=== PATIENT | male | born 1975 | race Caucasian/White ===

== ENCOUNTER 2022-05-27 17:41 | Outpatient (CLI) | payer OTHER, SELFPAY ==
[2022-05-27 18:16] LABS: Basophils # 0.1 10^3/uL (0.0-0.1); Basophils % 1.1 %; Eosinophils # 0.3 10^3/uL (0.0-0.8); Eosinophils % 2.8 %; Hematocrit 43.3 % (42.0-52.0); Hemoglobin 14.1 g/dL (11.7-16.6); Lymphocytes # 1.8 10^3/uL (0.8-4.8); Mean Corpuscular HGB Conc 32.6 g/dL (30.0-36.0); Mean Corpuscular Hemoglobin 27.9 pg (28.0-34.0); Mean Corpuscular Volume 85.6 fl (80-94); Mean Platelet Volume 9.8 fL (7.4-10.4); Monocytes # 0.7 10^3/uL (0.2-0.9); Monocytes % 7.9 %; Neutrophils # 6.24 10^3/uL (1.8-7.7); Neutrophils % 67.8 %; Nucleated Red Blood Cells % 0 %; Platelet Count 303 10^3/cmm (130-400); Red Blood Count 5.06 10^6/uL (4.1-5.3); Red Cell Distribution Width 12.8 % (12.1-15.1); White Blood Count 9.2 10^3/uL (4.0-10.0)
[2022-05-27 18:24] LABS: Erythrocyte Sedimentation Rate 9 mm/hr (0-10)
[2022-05-27 18:35] LABS: Alanine Aminotransferase 28 U/L (0-41); Albumin Level 4.3 g/dL (3.5-5.2); Alkaline Phosphatase 148 U/L (40-130); Aspartate Amino Transferase 19 U/L (0-40); C Reactive Protein 12.7 mg/L (0.0-4.9); Globulin 2.4 g/dL (1.3-4.6); Glomerular Filtration Rate 80.1 mL/min (90-130); Total Bilirubin 0.5 mg/dL (0.15-1.2); Total Protein 6.7 g/dL (6.6-8.7)
[2022-05-27 20:50] LABS: Hepatitis B Core AB, Total Non-Reactive (Nonreactive); Hepatitis B Surface Antigen Non-Reactive (Nonreactive); Hepatitis C Virus Antibody Non-Reactive (Nonreactive)
[2022-05-29 11:08] LABS: CENTROMERE B ANTIBODY <1.0 NEG AI (<1.0 NEG); JO-1 ANTIBODY <1.0 NEG AI (<1.0 NEG); RNP ANTIBODY <1.0 NEG AI (<1.0 NEG); SCL-70 ANTIBODY <1.0 NEG AI (<1.0 NEG); SJOGREN'S ANTIBODY (SS-A) <1.0 NEG AI (<1.0 NEG); SM ANTIBODY <1.0 NEG AI (<1.0 NEG); SS-B <1.0 NEG AI (<1.0 NEG)
[2022-05-29 12:34] LABS: COMPLEMENT COMPONENT C3C 170 mg/dL (82-185); COMPLEMENT COMPONENT C4C 32 mg/dL (15-53)
[2022-05-29 12:57] LABS: COMPLEMENT, TOTAL (CH50) 56 U/mL (31-60)
[2022-05-29 14:08] LABS: THYROID PEROXIDASE ANTIBODIES 2 IU/mL (<9)
[2022-05-29 17:04] LABS: ANA SCREEN, IFA NEGATIVE (NEGATIVE)
[2022-05-30 13:57] LABS: HLA-B27 POSITIVE (NEGATIVE)
[2022-05-30 14:37] LABS: Quantiferon Mitogen 9.27 IU/mL; Quantiferon Nil 0.02 IU/mL; Quantiferon Plus TB2 0.01 IU/mL; Quantiferon TB Gold NEGATIVE (NEGATIVE)
[2022-05-30 15:49] LABS: Cyclic Citrullinated Peptide <16 UNITS
[2022-05-31 15:18] LABS: DNA AB (DS) CRITHIDIA,IFA NEGATIVE (NEGATIVE)
== END 2022-05-27 17:42 | disposition home or self-care (01) ==
PROVIDERS: Visit Provider Internal Medicine Rheumatology
DX: M45.6 Ankylosing spondylitis lumbar region (principal); Z15.89 Genetic susceptibility to other disease; Z79.899 Other long term (current) drug therapy; R76.8 Other specified abnormal immunological findings in serum; Z11.59 Encounter for screening for other viral diseases
CPT/HCPCS: 80076; 82565; 85025; 85651; 86140; 86160; 86162; 86200; 86235; 86255; 86376; 86431; 86480; 86704; 86803; 86812; 87340

== ENCOUNTER 2022-05-30 11:55 | Outpatient (CLI) | payer OTHER, SELFPAY ==
--- NOTE | 2022-05-30 12:19 | XR_ITS ---
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 Findings: There are osteoarthritic spurs of all the thoracic vertebral bodies. There is disc space narrowing of all the thoracic disc interspaces. The paraspinal regions are normal. No compression fractures are seen. XR/XR thoracic spine 3V* [id number] Impression: Osteoarthritis and degenerative disc narrowing at all thoracic levels.
--- NOTE | 2022-05-30 12:19 | XR_ITS ---
WS: [id number] Lumbar spine, 3 views, 05/30/2022 Clinical Data: Z79.899 - Other half-way (current) drug therapy Comparison: None. Findings: No compression fractures or subluxation is seen. There is degenerative disc narrowing at the lower th oracic levels and L1-L2. There is narrowing of L5-S1. There are syndesmophytes of the lumbar spine c onsistent with ankylosing spondylitis.. The transverse processes are normal. The SI joints show sclerosis and narrowing. XR/XR lumbar spine 2-3V* [id number] Impression: 1. Probable ankylosing spondylitis. 2. Degenerative disc narrowing at L1-L2 and L5-S1.
--- NOTE | 2022-05-30 12:19 | XR_ITS ---
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 Findings: The SI joints show sclerosis and narrowing. This may indicate ankylosing spondylitis. The adjacent visualized pelvis and hips are unremarkable. XR/XR sacroiliac jts m 3V [id number] Impression: Sclerosis and narrowing of the SI joints which can indicate ankylosing spondyli tis.
--- NOTE | 2022-05-30 12:19 | XR_ITS ---
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 Findings: No compression fractures are seen. The disc heights are normal. There is anterior osteoarth ritic spurring from C2 through C7. There is no prevertebral soft tissue swelling. The odontoid is unr emarkable. The soft tissues of the neck and the lung apices are normal. 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
== END 2022-05-30 11:56 | disposition home or self-care (01) ==
PROVIDERS: Visit Provider Internal Medicine Rheumatology
DX: Z79.899 Other long term (current) drug therapy (principal); M45.6 Ankylosing spondylitis lumbar region; Z15.89 Genetic susceptibility to other disease; M47.814 Spondylosis without myelopathy or radiculopathy, thoracic region
CPT/HCPCS: 72040; 72072; 72100; 72202

== ENCOUNTER 2023-02-06 15:12 | Outpatient (CLI) | payer OTHER, SELFPAY ==
[2023-02-06 16:01] LABS: Lipase 47 U/L (13-60)
== END 2023-02-06 15:13 | disposition home or self-care (01) ==
PROVIDERS: PCP Family Medicine; Visit Provider Family Medicine
DX: R10.9 Unspecified abdominal pain (principal)
CPT/HCPCS: 83690

== ENCOUNTER 2023-02-06 15:38 | Emergency (ER) | payer OTHER, SELFPAY ==
[2023-02-06 15:40] VITALS: BP 133/88; PULSE 96; RESP 16; TEMP 36.4; O2SAT 97
--- NOTE | 2023-02-06 15:50 | ED_ITS ---
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 He notes some diarrhea 3 days ago however this had resolved and he had normal bowel movements. Today he had onset of symptoms approximately 2 PM with subacute onset of pain in the epigastric region. He notes nausea but no vomiting. He denies fevers. There is no significant radiation of the symptoms. Moderate to severe in intensity. He tried a GI cocktail with only mild improvement. No other specific changes in health, exacerbating, or alleviating factors identified. Onset (ago): hour(s) Location: Epigastric and Periumbilical Severity: severe Quality: stabbing and sharp Radiation: none Migration to: no migration Exacerbating factors: other (Palpation) Relieving factors: nothing Associated Symptoms: Reports diarrhea and nausea; Denies fever(s) and vomiting Review of Systems General: Reports: 10 or more systems reviewed and unremarkable except in HPI and below Const: Denies: fever(s) GI: Reports: nausea and diarrhea; Denies: vomiting PFSH ED PFSH: Medical History Axial spondyloarthritis Chronic back pain greater than 3 months duration High risk medication use HLA B27 (HLA B27 positive) Hyperlipidemia Hypertension Joint pain Obstructive sleep apnea Uveitis prior hx Surgical History History of sinus surgery History of tonsillectomy Social History Smoking and tobacco status: never smoked Physical Exam Const: COMMON NORMALS: alert GENERAL APPEARANCE: cooperative and well de veloped HENMT: COMMON NORMALS: normocephalic and atraumatic HEAD & SCALP: normocephalic and atraumatic Eye: COMMON NORMALS: conjunctivae normal CONJUNCTIVA: Yes conjunctivae normal SCLERA: sclerae normal Neck/C-Spine: COMMON NORMALS: supple GENERAL: Yes trachea midline Resp: COMMON NORMALS: clear to auscultation bilaterally EFFORT & INSPECTION: Yes able to speak in complete sentences AUSCULTATION: clear to auscultation bilaterally Cardio: COMMON NORMALS: regular rate and regular rhythm RATE: regular rate RHYTHM: regular rhythm GI: COMMON NORMALS: Soft to palpation PALPATION: Yes Soft to palpation, Yes Tenderness to palpation present (GI), Yes Guarding due to palpation present (GI) and No Rigid due to palpation Extremity: GENERAL: Yes normal exam except as noted and No edema Neuro: COMMON NORMALS: moves all extremities SENSORIUM/ORIENTATION: Yes alert and No Orientation impaired Psych: COMMON NORMALS: mental status grossly normal and Normal thought process present THOUGHT PROCESS: Normal thought process present Course Vital Signs: Vital signs: Vital Signs Temperature 97.6 F 02/06/23 15:40 Pulse Rate 106 H 02/06/23 18:21 Respiratory Rate 18 02/06/23 16:30 Blood Pressure 141/102 02/06/23 18:21 Pulse Oximetry 96 02/06/23 18:21 Oxygen Delivery Me thod Room Air 02/06/23 16:30 MDM - Abdominal Pain Medical Decision Making 47-year-old gentleman presenting with abdominal symptoms. Patient is uncomfortable appearing however nontoxic. There is evidence of abdominal tenderness and guarding with no evidence of acute surgical abdomen. Labs with mild hemoconcentration and leukocytosis. Metabolic panel unremarkable. Minimal elevation in ALT but no UTI. CT abdomen pelvis demonstrates likely ileus or enteritis. Incidental findings d iscussed with patient. Patient is significantly improved with treatment. He is comfortable with ou tpatient management. The results of ED evaluation were discussed with the patient including prescri ptions and/or symptomatic cares (if applicable) including appropriate and responsible use, followup plan, and return precautions. The patient verbalized understanding and felt safe for discharge. Medical Records I reviewed the patient's medical records. Lab Data I reviewed the patient's lab results. 02/06/23 15:59 02/06/23 15:59 Labs/Radiology: Radiology Impressions Abdomen/Pelvis CT 02/06/23 16:23 IMPRESSION: 1. Mildly dilated loops of proximal to mid small bowel with fecalization. This is consistent with decreased peristalsis and could represent ileus or enteritis. 2. Mild diverticulosis of the colon. 3. Nonobstructing renal calculi. COMMENTS: Consistent with the [employer]'s Incidental Findings Committee white paper (J Am Avery Radiol 2018): Any incidental renal lesion less than 1 cm or classified as too small to characterize, or any incidental cystic renal lesion characterized as simple-appearing, is likely benign. No follow-up imaging is recommended for these lesions per consensus recommendations based on imaging criteria. Laboratory Results WBC 11.4 10^3/uL (4.0-10.0) H 02/06/23 15:59 RBC 5.62 10^6/uL (4.1-5.3) H 02/06/23 15:59 Hgb 15.9 g/dL (11.7-16.6) 02/06/23 15:59 Hct 48.1 % (42.0-52.0) 02/06/23 15:59 MCV 85.6 fl (80-94) 02/06/23 15:59 MCH 28.3 pg (28.0-34.0) 02/06/23 15:59 MCHC 33.1 g/dL (30.0-36.0) 02/06/23 15:59 RDW 12.8 % (12.1-15.1) 02/06/23 15:59 Plt Count 294 10^3/cmm (130-400) 02/06/23 15:59 MPV 9.9 fL (7.4-10.4) 02/06/23 15:59 Neut % (Auto) 69.1 % 02/06/23 15:59 Lymph % (Auto) 19.5 % 02/06/23 15:59 [place] % (Auto) 9.3 % 02/06/23 15:59 Eos % (Auto) 0.7 % 02/06/23 15:59 Baso % (Auto) 1.0 % 02/06/23 15:59 Neut # (Auto) 7.86 10^3/uL (1.8-7.7) H 02/06/23 15:59 Lymph # (Auto) 2.2 10^3/uL (0.8-4.8) 02/06/23 15:59 [place] # (Auto) 1.1 10^3/uL (0.2-0.9) H 02/06/23 15:59 Eos # (Auto) 0.1 10^3/uL (0.0-0.8) 02/06/23 15:59 Baso # (Auto) 0.1 10^3/uL (0.0-0.1) 02/06/23 15:59 Nucleated RBC % (auto) 0 % 02/06/23 15:59 Nucleated RBCs # 0.0 /100WBC 02/06/23 15:59 Sodium 137 mmol/L (136-145) 02/06/23 15:59 Potassium 4.0 mmol/L (3.5-5.1) 02/06/23 15:59 Chloride 99 mmol/L (98-107) 02/06/23 15:59 Carbon Dioxide 28 mmol/L (22-29) 02/06/23 15:59 Anion Gap 14.0 (5-19) 02/06/23 15:59 BUN 17 mg/dL (6-20) 02/06/23 15:59 Creatinine 1.0 mg/dL (0.7-1.2) 02/06/23 15:59 GFR Calculation 79.8 mL/min (90-130) L 02/06/23 15:59 Glucose 114 mg/dL (65-115) 02/06/23 15:59 Calculated Osmolality 286 mOsm/kg (285-295) 02/06/23 15:59 Calcium 9.5 mg/dL (8.5-10.5) 02/06/23 15:59 Total Bilirubin 0.7 mg/dL (0.15-1.2) 02/06/23 15:59 AST 33 U/L (0-40) 02/06/23 15:59 ALT 55 U/L (0-41) H 02/06/23 15:59 Alkaline Phosphatase 84 U/L (40-130) 02/06/23 15:59 Total Protein 7.3 g/dL (6.6-8.7) 02/06/23 15:59 Albumin 4.5 g/dL (3.5-5.2) 02/06/23 15:59 Globulin 2.8 g/dL (1.3-4.6) 02/06/23 15:59 Lipase 42 U/L (13-60) 02/06/23 15:59 Urine Color Yellow (Yellow) 02/06/23 16:55 Urine Appearance Clear (CLEAR) 02/06/23 16:55 Urine pH 7 (5-7) 02/06/23 16:55 Ur Specific [place] 1.005 (1.005-1.030) 02/06/23 16:55 Urine Protein Neg (Negative) 02/06/23 16:55 Urine Glucose (UA) Norm (Normal) 02/06/23 16:55 Urine Ketones Negative (Negative) 02/06/23 16:55 Urine Blood Neg (Negative) 02/06/23 16:55 Urine Nitrate Negative (Negative) 02/06/23 16:55 Urine Bilirubin Neg (Negative) 02/06/23 16:55 Urine Urobilinogen Norm mg/dL (Negative) 02/06/23 16:55 Ur Leukocyte Esterase Negative (Negative) 02/06/23 16:55 Discharge Plan Discharge Patient Disposition: Home Clinical Impression: Abdominal pain, Enteritis, Nausea Condition: Stable Prescriptions: New Reglan 10 mg tablet 10 mg PO Q6H PRN (Reason: nausea and vomiting) Qty: 20 0RF No Action omeprazole 20 mg capsule,delayed release(DR/EC) 20 mg PO DAILY tadalafil 10 mg tablet 10 mg PO DAILY Rx Instructions: administer approximately 30min before sexual activity; do not use more than 1 dose per 24hrs lisinopril 20 mg tablet 40 mg PO DAILY Humira 40 mg/0.8 mL syringe kit See Rx Instructions .ROUTE .COMPLEX Qty: 2 3RF Dose Instruction: INJECT 40MG (0.8ML) SUBCUTANEOUSLY EVERY 14 DAYS Rx Instructions: INJECT 40MG (0.8ML) SUBCUTANEOUSLY EVERY 14 DAYS chlorthalidone 25 mg tablet 12.5 mg PO DAILY prednisone 20 mg tablet See Rx Instructions PO .COMPLEX PRN (Reason: joint pain flare) Qty: 30 1RF Rx Instructions: take 1 tab daily for 5-7 days as needed for arthritis flare PO PRN; Discharge Orders: Discharge ED (Routine); Ordered 02/06/23 Ordered By: Glenn Nugent Referrals: Ralf Skelton MD [Primary Care Provider] - Discharge Diet: Advance as tolerated and Clear Liquid Discharge Activity: Increase activity as tolerated Patient Instructions: Abdominal Pain (ED), Ileus (ED), Enteritis (ED), Opioid Safety Activity Restrictions/Additional Instructions: Thank you for visiting the emergency department. You were seen and evaluated for abdominal pain with nausea. The most likely cause of your symptoms is related to enteritis/ileus. As discussed the treatment for this is typically supportive though there is a risk of progression to a bowel obstruction. I will prescribe antinausea medication. Please start with clear liquid diet and advance slowly as tolerated. Return to the emergency department for worsening symptoms, inability tolerate medication or oral intake, inability to have bowel movements or pass flatus, or anything else that you are concerned about and feel needs emergency room evaluation. Coding Level of Care Code ED [place] for Maritza Cook
[2023-02-06 15:56] VITALS: PULSE 87; RESP 18; O2SAT 99
[2023-02-06] MEDS: lactated ringers 1,000 ML 999 ML IV (16:08)
[2023-02-06] MEDS: morphine 4 mg/mL SDV 1 mL IVP (16:10)
[2023-02-06] MEDS: ondansetron 2 mg/ML SDV 2 mL 4 MG IVP (16:10)
--- NOTE | 2023-02-06 16:23 | CTR_ITS ---
PROCEDURE INFORMATION: Exam: CT Abdomen And Pelvis With Contrast Exam date and time: 02/06/2023 4:44 PM Age: 47 years old Clinical indication: Abdominal pain; Additional info: Epigastric pain TECHNIQUE: Imaging protocol: Computed tomography of the abdomen and pelvis with contrast. Radiation optimization: All CT scans at this facility use at least one of these dose optimization techniques: automated exposure control; mA and/or kV adjustment per patient size (includes targeted exams where dose is matched to clinical indication); or iterative reconstruction. Contrast material: OMNI 350; Contrast volume: 100 ml; Contrast route: INTRAVENOUS (IV); REPORTING DATA: Count of CT and Cardiac NM exams in prior 12 months: This patient has received 0 known CTs and 0 known cardiac nuclear medicine studies in the 12 months prior to the current study. COMPARISON: CR XR hip RT 2-3V wo/w pel* [id number] 01/15/2023 7:44 AM RADIATION DOSE METRICS: Total DLP (mGy-cm): 1160.63 FINDINGS: Liver: Mild diffuse fatty infiltration. No mass. Gallbladder and bile ducts: Normal. No calcified stones. No ductal dilation. Pancreas: Normal. No ductal dilation. Spleen: Normal. No splenomegaly. Adrenal glands: Normal. No mass. Kidneys and ureters: 6 mm right and 3 mm left nonobstructing renal calculi. No ureteral calculus or hydronephrosis. Left renal cyst, Hounsfield units less than 20. Additional hypodense lesions in both kidneys are too small to characterize but most likely represent cysts. No follow-up imaging is recommended. Stomach and bowel: Mild diverticulosis of the distal colon. No diverticulitis. Food distended stomach. No wall thickening. Multiple loops of fluid filled proximal to mid small bowel with some fecalization, measuring up to 3.5 cm diameter. No focal transition point or obstruction. Appendix: The appendix is visualized and is normal. Intraperitoneal space: Unremarkable. No free air. No significant fluid collection. Vasculature: Unremarkable. No abdominal aortic aneurysm. Lymph nodes: Unremarkable. No enlarged lymph nodes. Urinary bladder: Unremarkable as visualized. Reproductive: Unremarkable as visualized. Bones/joints: Unremarkable. No acute fracture. Soft tissues: Small fat containing umbilical hernia. CT/CT abdomen pelvis w con* [id number] IMPRESSION: 1. Mildly dilated loops of proximal to mid small bowel with fecalization. This is consistent with decreased peristalsis and could represent ileus or enteritis. 2. Mild diverticulosis of the colon. 3. Nonobstructing renal calculi. COMMENTS: Consistent with the [employer]'s Incidental Findings Committee white paper (J Am Avery Radiol 2018): Any incidental renal lesion less than 1 cm or classified as too small to characterize, or any incidental cystic renal lesion characterized as simple-appearing, is likely benign. No follow-up imaging is recommended for these lesions per consensus recommendations based on imaging criteria.
[2023-02-06 16:30] VITALS: PULSE 86; RESP 18; O2SAT 95
[2023-02-06 16:34] LABS: Basophils # 0.1 10^3/uL (0.0-0.1); Eosinophils # 0.1 10^3/uL (0.0-0.8); Eosinophils % 0.7 %; Hematocrit 48.1 % (42.0-52.0); Hemoglobin 15.9 g/dL (11.7-16.6); Lymphocytes # 2.2 10^3/uL (0.8-4.8); Lymphocytes % 19.5 %; Mean Corpuscular HGB Conc 33.1 g/dL (30.0-36.0); Mean Corpuscular Hemoglobin 28.3 pg (28.0-34.0); Mean Corpuscular Volume 85.6 fl (80-94); Mean Platelet Volume 9.9 fL (7.4-10.4); Monocytes # 1.1 10^3/uL (0.2-0.9); Monocytes % 9.3 %; Neutrophils # 7.86 10^3/uL (1.8-7.7); Neutrophils % 69.1 %; Nucleated Red Blood Cells % 0 %; Platelet Count 294 10^3/cmm (130-400); Red Blood Count 5.62 10^6/uL (4.1-5.3); Red Cell Distribution Width 12.8 % (12.1-15.1); White Blood Count 11.4 10^3/uL (4.0-10.0)
[2023-02-06 16:44] LABS: Alanine Aminotransferase 55 U/L (0-41); Albumin Level 4.5 g/dL (3.5-5.2); Alkaline Phosphatase 84 U/L (40-130); Aspartate Amino Transferase 33 U/L (0-40); Blood Urea Nitrogen 17 mg/dL (6-20); Calcium 9.5 mg/dL (8.5-10.5); Carbon Dioxide 28 mmol/L (22-29); Chloride 99 mmol/L (98-107); Globulin 2.8 g/dL (1.3-4.6); Glomerular Filtration Rate 79.8 mL/min (90-130); Glucose 114 mg/dL (65-115); Lipase 42 U/L (13-60); Osmolality Calculated 286 mOsm/kg (285-295); Sodium 137 mmol/L (136-145); Total Bilirubin 0.7 mg/dL (0.15-1.2); Total Protein 7.3 g/dL (6.6-8.7)
[2023-02-06 16:58] VITALS: BP 132/87; PULSE 104; O2SAT 97
[2023-02-06 17:24] LABS: Add Urine Microscopic? NO; Charge for UA Resulting for Rev
[2023-02-06 17:32] LABS: Bilirubin Urine Neg (Negative); Blood Urine Neg (Negative); Glucose Urine UA Norm (Normal); Ketones Urine Negative (Negative); Leukocyte Esterase Urine Negative (Negative); Nitrate Urine Negative (Negative); Protein Urine Neg (Negative); Specific Gravity, Urine 1.005 (1.005-1.030); Urine Appearance Clear (CLEAR); Urine Color Yellow (Yellow); Urobilinogen Urine Norm (Negative); pH Urine 7 (5-7)
[2023-02-06] MEDS: metoclopramide 5 mg/mL SDV 2 mL 10 MG IVP (18:02)
[2023-02-06 18:07] VITALS: BP 141/102; PULSE 101; O2SAT 99
[2023-02-06 18:21] VITALS: BP 141/102; PULSE 106; O2SAT 96
== END 2023-02-06 18:22 | disposition home or self-care (01) ==
PROVIDERS: Emergency Provider Emergency Medicine; PCP Family Medicine
DX: K52.9 Noninfective gastroenteritis and colitis, unspecified (principal); E78.5 Hyperlipidemia, unspecified; I10 Essential (primary) hypertension
CPT/HCPCS: 74177; 80053; 81003; 83690; 85025; 96361; 96374; 96375; 99285; J2270; J2405; J2765; J7120; Q9967

== ENCOUNTER 2023-11-11 07:03 | Outpatient (CLI) | payer OTHER, SELFPAY ==
[2023-11-11 07:27] VITALS: PULSE 75; RESP 18; O2SAT 97
[2023-11-11] MEDS: albuterol 2.5 mg/3 mL Neb INHALATION (07:27)
[2023-11-11 07:31] VITALS: PULSE 79
== END 2023-11-11 07:04 | disposition home or self-care (01) ==
LOC: RT 07:04
PROVIDERS: PCP Family Medicine; Visit Provider Family Medicine
DX: R09.02 Hypoxemia (principal)
CPT/HCPCS: 94060; 94726; 94729; J7613

== ENCOUNTER 2025-03-24 12:51 | Outpatient (CLI) | payer OTHER, SELFPAY ==
--- NOTE | 2025-03-24 12:56 | CT_ITS ---
WS: [id number] Exam: CT abdomen pelvis w con* [id number] Date/Time of Exam: 03/24/2025 1:05 PM Reason For Exam: ABDOMINAL PAIN DLP: All CT scans at [facility] use at least one of these dose optimization techniques: automated exposure control; mA and/or kV adjustment per patient size (includes targeted exams where dose is matched to clinical indication); or iterative reconstruction. Lower lung zones are clear. Mild hepatic steatosis noted. No hepatic mass or nodule. No filling defects in the gallbladder. The stomach, spleen and pancreas appear normal. The aorta is normal in caliber. IVC is unremarkable. Small nonobstructing stones in both kidneys. Bilateral renal cysts are noted. Small bowel loops are normal in caliber. No lymphadenopathy. No free air. There is colonic diverticulosis with a short segment of acute diverticulitis involving the junction of the sigmoid and lower descending colon. There is paracolic fat stranding and inflammation. A probable tiny contained perforation is noted. This is on axial image 68 of 103. Normal appendix identified. No mass, adenopathy or abscess in the pelvis. Intact urinary bladder. Prostate gland and seminal vesicles unremarkable. It is noted that the SI joints are partially fused and there are some features in the visualized spine that might indicate early ankylosing spondylitis. CT/CT abdomen pelvis w con* [id number] IMPRESSION: 1. Diverticulosis of the descending and sigmoid colon with a short segment of a cute diverticulitis near the junction of the descending and sigmoid colon. Prob able tiny contained perforation along the sigmoid bowel. No abscess identified. 2. Nonobstructing bilateral renal calculi. Bilateral renal cysts. 3. Bony changes in the SI joints and spine suggesting ankylosing spondylitis.
== END 2025-03-24 12:52 | disposition home or self-care (01) ==
LOC: RAD 12:51
PROVIDERS: PCP Family Medicine; Visit Provider Family Medicine
DX: K57.32 Diverticulitis of large intestine without perforation or abscess without bleeding (principal); K57.30 Diverticulosis of large intestine without perforation or abscess without bleeding; N20.0 Calculus of kidney; N28.1 Cyst of kidney, acquired
CPT/HCPCS: 74177